=== PATIENT | female | born 2000 | race Caucasian/White ===

== ENCOUNTER 2022-05-19 05:16 | Inpatient (IN) ==
--- NOTE | 2022-05-18 19:45 | History & Physical Report ---
Date of Service May 18, 2022 Assessment & Plan (1) 40 weeks gestation of : (2) malpresentation: Plan Patient will be admitted for planned c/s due to malpresentation. Consent reviewed and signed. Patient to call and present to hospital immediately with labor or rom in meantime otherwise plan surgery for am. NPO after midnight. Risks, alternatives and complications reviewed. Labs in am. Patient and partner verbalize understanding of plan. History of Present Illness Chief Complaint: planned c/s Primary Care Provider: NO PCP 21yo at 40+wks ega presents to LD for planned c/s due to malpresentation. Came for her routine appt and noted to be breech and given ega planned for c/s on day of admission. No ctx, rom or vb. +FM. PNC c/b 1. hypothyroid, on meds 2. Chiari malformation, ok for vag delivery per neuro PNL rh pos, ri, gbs neg OBH: sab x 1 GYNH: no stds Allergies Allergy/AdvReac Type Severity Reaction Status Date / Time No Known Allergies Allergy Verified 05/18/22 15:02 Home Medications Medication Instructions Recorded Confirmed Type levothyroxine 100 mcg tablet 100 mcg PO DAILY 07/07/21 05/18/22 History (Synthroid) prenat.vits,abner,gca-znxm-vcmly 1 tab PO DAILY 07/07/21 05/18/22 History Patient History Medical History Chiari malformation Arnold-Chiari Type 1 malformation, following with [facility] neuro Per [facility] note 04/21/22, "Spoke with Dr. Brown, was able to review images and patient is ok with vaginal delivery and anesthesia" H/O Ness thyroiditis History of COVID-19 02/25/22 (home test)- symptoms resolved but does get occasional headaches since (unsure if relation) Surgical History H/O wisdom tooth extraction No history of previous surgery Family History Grandmother (Maternal) Uterine cancer Thyroid disease Aunt Breast cancer Mother Lupus Ness's thyroiditis Denies family history of Ovarian cancer Colorectal cancer Social History (Updated 05/15/22 @ 14:12 by Horacio Montgomery RN) Smoking Status: Former smoker Tobacco Type: Cigarettes packs per day: 0.1; Cigarettes Per Day: 1-2; Hx Alcohol Use: No Hx Substance Use: No Preferred Language: Citizen Of [place] Communication Ability: Effective Water Server Required: No Beliefs That Will Affect Care: None marital status: Single marital status details: garry Carlton [phone] Current Living Situation: Significant Other Current Living Situation Comment: lives with garry, 4 dogs, garry's father. current occupational status: employed current occupation: [email or web address] Feels Safe at Home: Yes Review of Systems as per Subjective / HPI Physical Exam Constitutional: WD/WN, vitals as above Gastrointestinal (Abdomen): soft gravid nt bedside u/s breech Musculoskeletal: no edema nontender calves Neurologic: grossly normal Psychiatric: A+Ox3, euthymic affect Genitourinary: Manual OB Exam: + cervical dilation (1-2cm), + cervical effacement (75%) and + station (palpated feet) high NST reactive Coding Level of Care Code None Diagnoses 40 weeks gestation of Z3A.40 malpresentation O32.9XX0
[2022-05-19] MEDS ORDERED: LACTATED RINGER'S 1,000 ML IV SCH ×2 (05:30→06:30)
[2022-05-19] MEDS ORDERED: CITRIC ACID/SODIUM CITRATE 15 ML UDC PO SCH (06:00)
[2022-05-19] MEDS ORDERED: ceFAZolin 2000MG 2,000 MG/15 ML SYR IV SCH (06:00)
[2022-05-19 06:26] LABS: Basophils # (auto) 0.03 K/uL (0-0.2); Basophils % (auto) 0.3 %; Eosinophils # (auto) 0.12 K/uL (0-0.50); Eosinophils % (auto) 1.1 %; Hematocrit (blood only) 34.4 % (37.0-47.0); Hemoglobin 11.9 g/dl (12.0-16.0); Immature Granulocytes # (auto) 0.04 K/uL (0.01-0.20); Immature Granulocytes % (auto) 0.4 %; Lymphocytes # (auto) 2.76 K/uL (1.2-3.4); Lymphocytes % (auto) 25.3 %; Mean Corpuscular Hemoglobin 30.4 pg (25.0-34.0); Mean Corpuscular Hgb Conc 34.6 g/dL (32.0-36.0); Mean Corpuscular Volume 87.8 fL (80.0-100.0); Mean Platelet Volume 9.7 fL (9.4-12.4); Monocytes # (auto) 0.88 K/uL (0.11-0.59); Monocytes % (auto) 8.1 %; Neutrophils % (auto) 64.8 %; Platelet Count 281 K/uL (130-400); RDW Coefficient of Variation 12.4 % (11.5-14.5); RDW Standard Deviation 39.3 fL (36.4-46.3); Red Blood Count 3.92 M/uL (4.20-5.40); White Blood Count 10.93 K/ul (4.8-10.8)
[2022-05-19] MEDS ORDERED: fentaNYL citrate 100 MCG/2 ML VIAL ONE (07:06)
[2022-05-19] MEDS ORDERED: ONDANSETRON INJ 2 MG/ML 2 ML VIAL ONE (07:06)
[2022-05-19] MEDS ORDERED: MoRPHine SULFATE PF 1 MG/ML 10 ML AMP/VIAL ONE (07:06)
[2022-05-19] MEDS ORDERED: OXYTOCIN 10 UNITS/ML 10ML VIAL ONE (07:06)
[2022-05-19] MEDS ORDERED: PHENYLEPHRINE HCL 10 MG/ML VIAL ONE (07:06)
[2022-05-19] MEDS ORDERED: KETOROLAC 30 MG/ML VIAL ONE (07:06)
--- NOTE | 2022-05-19 07:19 | Anesthesiology Consultation ---
Date of Service May 19, 2022 Assessment & Plan (1) Encounter for pre-operative examination: Chart Review Chart Review: Acceptable Risk for Surgery and Patient NOT seen in Pre Admission Testing Consults Requested none History Surgery Operation Date: 05/19/22 07:30 Proposed Procedures p Section in LD (Delivery of Baby Through Abdominal Incision) - Genevieve Duarte MD, FACOG Height/Weight Height: 5 ft 2 in Weight: 80.286 kg Allergies Allergy/AdvReac Type Severity Reaction Status Date / Time No Known Allergies Allergy Verified 05/19/22 05:32 Medications Home Medications Medication Instructions Recorded Confirmed Last Taken levothyroxine 100 mcg tablet 100 mcg PO DAILY 07/07/21 05/19/22 05/19/22 (Synthroid) prenat.vits,abner,zaf-vqxk-styvo 1 tab PO DAILY 07/07/21 05/19/22 05/18/22 Active Medications Generic Name Dose Route Start Last Admin Trade Name Freq PRN Reason Stop Dose Admin Lactated Ringer's 1,000 mls @ 125 mls/hr 05/19/22 06:30 05/19/22 07:12 Lr IV 06/18/22 06:29 125 mls/hr .Q8H EFREN Administration NPO Date Last Intake of Fluids: 05/18/22 Time Last Intake of Fluids: 22:30 Date Last Intake of Solids: 05/18/22 Time Last Intake of Solids: 22:30 Past Medical History Medical History Chiari malformation Arnold-Chiari Type 1 malformation, following with [facility] neuro [facility] 04/21/22, "Spoke with Dr. Brown, was able to review images and patient is ok with vaginal delivery and anesthesia" H/O Ness thyroiditis History of COVID-19 02/25/22 (home test)- symptoms resolved but does get occasional headaches since (unsure if relation) Past Family History Family History Grandmother (Maternal) Uterine cancer Thyroid disease Aunt Breast cancer Mother Lupus Ness's thyroiditis Denies family history of Ovarian cancer Colorectal cancer Past Surgical History Surgical History H/O wisdom tooth extraction No history of previous surgery Social History Smoking Status: Former smoker Smoking cigarettes per day: 1-2 Smoking End Date: 01/2022 Hx Alcohol Use: No Hx Substance Use: No substance use type: does not use Physical Exam Vital Signs Last Vital Signs Temp 98.8 F 05/19/22 05:29 Pulse 89 05/19/22 05:29 Resp 18 05/19/22 05:34 BP 132/64 05/19/22 05:29 Testing Laboratory Results 05/19/22 05:52
--- NOTE | 2022-05-19 07:29 | History & Physical Bridge Note ---
Date of Service May 19, 2022 History & Physical Bridge Note I have examined the patient, reviewed the History & Physical and in the interval since the performance of the History & Physical I have noted the following changes of clinical significance: no changes noted
[2022-05-19] MEDS ORDERED: NALOXONE HCL 0.08 MG in SYRINGE 1.8 ML IV PRN (08:17)
[2022-05-19] MEDS ORDERED: ePHEDrine sulfate 50 MG/ML AMP IV PRN (08:17)
[2022-05-19] MEDS ORDERED: NALBUPHINE HCL INJ 10 MG/ML AMP IV PRN (08:17)
[2022-05-19] MEDS ORDERED: ACETAMINOPHEN 1,000 MG/100 ML VIAL IV PRN (08:17)
[2022-05-19] MEDS ORDERED: NALOXONE HCL 1 MG in SODIUM CHLORIDE 0.9% 1000ML 1,000 ML IV PRN (08:17)
[2022-05-19] MEDS ORDERED: NALOXONE HCL 0.4 MG/1 ML VIAL/CARP IV PRN (08:17)
[2022-05-19] MEDS ORDERED: ONDANSETRON INJ 2 MG/ML 2 ML VIAL IV PRN ×2 (08:17→09:27)
[2022-05-19] MEDS ORDERED: diphenhydrAMINE 50 MG/ML VIAL IV PRN (08:17)
[2022-05-19] MEDS ORDERED: MoRPHine SULFATE PF 1 MG/ML 10 ML AMP/VIAL INT SPINAL ONE (08:17)
[2022-05-19] MEDS ORDERED: PROMETHAZINE HCL 12.5 MG in SODIUM CHLORIDE 0.9% 50 ML IV PRN (08:17)
[2022-05-19] MEDS ORDERED: LACTATED RINGER'S 500 ML IV PRN (08:17)
[2022-05-19] MEDS ORDERED: NO NARCOTICS OR SEDATIVES SCH (08:30)
[2022-05-19] MEDS ORDERED: DC INTRASPINAL MORPHINE SCH (08:30)
[2022-05-19] MEDS ORDERED: SODIUM CHLORIDE 0.9% 1000ML 1,000 ML IV SCH (08:30)
--- NOTE | 2022-05-19 09:01 | Post Operative Brief Note ---
PG Immediate Post Op with CF Date of Surgery May 19, 2022 Pre & Post Diagnosis Operation Date: 05/19/22 07:30 Pre-Op Diagnosis: 40 weeks gestation of section for malpresentation Post-Op Diagnosis: Same as pre-op I identified the patient and participated in the time-out.: Yes Procedure Operation Date: 05/19/22 07:30 Actual Procedures p Primary Low Transverse Section in LD (Delivery of Baby Through Abdominal Incision), Live male child at 0825(Bilateral) - Genevieve Duarte MD, FACOG Surgeon Genevieve Duarte MD, FACOG Vice President Of Marketing RN Estimated Blood Loss 500 Findings Consistent with Post-Op Diagnosis (viable infant, apgars pending. normal uterus tubes and ovaries bilaterally. ) Fluids 1200 Specimens Specimen Description: A. Placenta-hold B. Cord Blood Drains Falcon Catheter (Inserted after spinal, patent and draining clear yellow urine during procedure.) Anesthesia Type Spinal Complications none Disposition Accompanied Patient To Recovery: No Disposition: L&D
--- NOTE | 2022-05-19 09:14 | Anesthesiology Progress Note ---
Date of Service May 19, 2022 Anesthesia Post Procedure Vital Signs Vital Signs: Temp Pulse Resp BP 05/19/22 05:34 18 05/19/22 05:29 98.8 F 89 18 132/64 Transfer of Care Handoff Completed per policy Notes Mental Status: alert / awake / arousable and participated in evaluation Patient Amnestic to Procedure: No Nausea / Vomiting: adequately controlled Pain: adequately controlled Airway Patency, RR, SpO2: stable & adequate BP & HR: stable & adequate Hydration State: stable & adequate Neuraxial Anesthesia: was administered and sensory block is resolving Anesthetic Complications: no major complications apparent and Pt Satisfied with anesthetic care
--- NOTE | 2022-05-19 09:19 | Operative Report ---
PG Post Operative Report Pre & Post Diagnosis Operation Date: 05/19/22 07:30 Pre-Op Diagnosis: 40+ weeks gestation of malpresentation Post-Op Diagnosis: Same as pre-op I identified the patient and participated in the time-out.: Yes Procedure Operation Date: 05/19/22 07:30 Actual Procedures p Primary Low Transverse Section - Genevieve Duarte MD, FACOG Surgeon Genevieve Duarte MD, FACOG Mandate Retail Service Merchandiser RN Estimated Blood Loss 500 Findings Consistent with Post-Op Diagnosis (viable , apgars pending. normal uterus tubes and ovaries bilaterally. ) Fluids 1200 Specimens cord blood Drains 1200 Anesthesia Type Spinal Complications none Disposition Accompanied Patient To Recovery: No Disposition: L&D Indications 21yo with cc of malpresentation for planned section at 40+wks. Description of Procedure The patient was taken to the operating room and identified. After adequate anesthesia was obtained, she was placed in the supine position with a leftward tilt on the operating table and prepped and draped in the usual sterile fashion. A chapman catheter had already been placed. The knife was used to create a Pfannensteil skin incision that was carried down to the underlying layer of fascia. The fascia was nicked in the midline and this opening was extended laterally using Ferris scissors. Prashant clamps were placed on the superior and inferior aspect of the fascial incision tenting it upward and the underlying rectus muscles were dissected off the overlying fascia both sharply and bluntly using Ferris scissors. The rectus muscles were bluntly in the midline. The peritoneal cavity was bluntly entered into. This opening was stretched. The bladder blade was placed. The vesicouterine peritoneum was elevated and opened up into and the bladder flap was created digitally and bladder blade was r eplaced. The knife was used to create a hysterotomy and this opening was stretched. The operators hand was placed through the hysterotomy and the bladder blade was removed. The buttocks was elevated and delivered with fundal pressure to the level of the shoulders, the arms were swept across the anterior midline and the head was flexed and delivered. The cord was clamped and cut and the infant's mouth and nares were bulb suction. The infant was handed off to the awaiting pediatricians. Cord blood was obtained. The placenta was manually expressed. The uterus was exteriorized and cleared of all clots and debris. Dilute IV Pitocin was begun. The uterine tone was improving. The hysterotomy was closed in a running interlocking fashion using 0 Vicryl followed by a second imbricating layer of 0 Vicryl. The hysterotomy was not hemostatic and additional figure of eight sutures of 2-0 and 0 vicryl were placed for excellent hemostasis. The pelvis was suctioned. The uterus was returned to the abdomen. The gutters were cleared of all clots and debris. The hysterotomy was reinspected and noted to be hemostatic. The fascia was then closed in running fashion using 0 Vicryl. The subcutaneous fat was copiously irrigated and reapproximated using 2-0 chromic. The skin was closed in a subcuticular fashion using 4-0 Vicryl. At this point the procedure was terminated. The patient was transferred to the recovery room in stable condition. All sponge, lap and needle counts are correct x2. I attest to the content of the Intraoperative Record and any orders documented therein. Any exceptions are noted below. OB Procedure Charges 41518
[2022-05-19] MEDS ORDERED: MAGNESIUM HYDROXIDE SUSP 30 ML UDC PO PRN (09:27)
[2022-05-19] MEDS ORDERED: SENNA 8.6 MG TAB PO PRN (09:27)
[2022-05-19] MEDS ORDERED: BENZOCAINE 20% AER SPR 82.5 GM CAN EXT PRN (09:27)
[2022-05-19] MEDS ORDERED: DIPHTHERIA/TETANUS/PERTUSSIS 0.5mL SYR/VIAL (Age 7+yrs) IM ONE (09:27)
[2022-05-19] MEDS ORDERED: HYDROCORTISONE ACETATE 25 MG SUPP PR PRN (09:27)
[2022-05-19] MEDS: OXYTOCIN 20 UNITS in LACTATED RINGER'S 1,000 ML IV SCH ×2 (10:52→20:10)
[2022-05-19] MEDS: HYDROmorphone INJ 0.5 MG/0.5 ML SYR IV PRN ×2 (11:05→17:50)
[2022-05-19] MEDS: KETOROLAC 30 MG/ML VIAL IV PRN ×2 (13:06→21:14)
[2022-05-19] MEDS: SIMETHICONE 80 MG CHEW PO SCH ×3 (13:07→21:14)
[2022-05-19] MEDS: DOCUSATE SODIUM 100 MG CAP PO SCH (21:14)
[2022-05-20] MEDS ORDERED: KETOROLAC 30 MG/ML VIAL IV PRN (02:18)
[2022-05-20] MEDS ORDERED: ZOLPIDEM TARTRATE 5 MG TAB PO PRN (02:18)
[2022-05-20] MEDS ORDERED: PROMETHAZINE HCL 25 MG in SODIUM CHLORIDE 0.9% 50 ML IV PRN (02:18)
[2022-05-20] MEDS ORDERED: diphenhydrAMINE 50 MG/ML VIAL IV PRN (02:18)
[2022-05-20] MEDS ORDERED: diphenhydrAMINE Capsule 25 MG CAP PO PRN (02:18)
[2022-05-20] MEDS: LACTATED RINGER'S 1,000 ML IV SCH ×3 (03:12→17:31)
[2022-05-20] MEDS: LEVOTHYROXINE SODIUM 100 MCG TABLET PO SCH (06:09)
--- NOTE | 2022-05-20 06:26 | Obstetrical Progress Note ---
Date of Service <Mary Guillermo MD - Last Filed: 05/20/22 06:27> May 20, 2022 Assessment & Plan <Mary Guillermo MD - Last Filed: 05/20/22 06:27> (1) care following delivery: 21 y/o female presented for primary c/s 2/2 footling breech presentation of fetus now POD1. GBS neg, Rh pos, RI. Tolerating clears, advancing diet today. Voiding trial. Encourage ambulation. Satisfactory post progress. c/b hypothyroidism c/b chiari malformation <Genevieve Duarte MD, FACOG - Last Filed: 05/20/22 07:00> (1) care following delivery: Subjective <Mary Guillermo MD - Last Filed: 05/20/22 06:27> Ambulation: limited ambulation Voiding: voiding difficulty (chapman removed last evening, has not yet passed urine) Diet Tolerance:: clear liquids (regular diet to try this AM) Lochia:: Small patient woken at bedside this AM, very sleepy - history limited. Physical Exam <Mary Guillermo MD - Last Filed: 05/20/22 06:27> Gen: well appearing sleepy female in NAD HEENT: AT NC Resp: No increased work of breathing CV: clinically well perfused, no calf tenderness : uterine fundus firm non-tender at the level of the umbilicus, wound - dressing c/d/i no strike through Results & Data ([facility]) <Mary Guillermo MD - Last Filed: 05/20/22 06:27> Vital Signs (Past 12 Hours) Vital Signs Temp Pulse Resp BP Pulse Ox O2 Del Method 05/20/22 02:35 36.8 C 86 18 110/68 Room Air 05/20/22 02:00 18 100 05/20/22 01:00 18 100 05/20/22 00:00 16 100 05/19/22 23:20 36.7 C 76 16 120/71 100 Room Air 05/19/22 23:00 16 100 05/19/22 22:00 18 100 05/19/22 21:00 18 100 05/19/22 20:00 18 99 05/19/22 19:59 36.4 C L 69 18 109/64 100 Room Air 05/19/22 19:00 18 98 05/19/22 18:45 16 100 Laboratory Results 05/19/22 05:52 <Genevieve Duarte MD, FACOG - Last Filed: 05/20/22 07:00> Co-Signing Physician Notes Resident Physician Supervision Note: I interviewed and examined the patient. Discussed with Dr. Guillermo and agree with findings and plan as documented in the note. Any exceptions or clarifications are listed here: stable, routine care. adv diet, po pain meds. await voiding. . cor rrr, lungs ctab, abd soft ff at u, mild appro tenderness, incision c/d/i. ext nt calves. pod#1, s/p LTCS, rec using scds, labs pending. routine care. Documented By: Genevieve Duarte MD, FACOG Resident Activity Tracking <Mary Guillermo MD - Last Filed: 05/20/22 06:27> Resident Involvement: Resident Care Provided Care Provided: OB Delivery
[2022-05-20 07:43] LABS: Basophils # (auto) 0.03 K/uL (0-0.2); Basophils % (auto) 0.3 %; Eosinophils % (auto) 0.9 %; Hematocrit (blood only) 25.2 % (37.0-47.0); Hemoglobin 8.5 g/dl (12.0-16.0); Immature Granulocytes # (auto) 0.03 K/uL (0.01-0.20); Immature Granulocytes % (auto) 0.3 %; Lymphocytes # (auto) 1.86 K/uL (1.2-3.4); Mean Corpuscular Hgb Conc 33.7 g/dL (32.0-36.0); Mean Platelet Volume 10.1 fL (9.4-12.4); Monocytes # (auto) 0.84 K/uL (0.11-0.59); Monocytes % (auto) 7.2 %; Neutrophils # (auto) 8.73 K/uL (1.40-6.50); Neutrophils % (auto) 75.3 %; Platelet Count 252 K/uL (130-400); RDW Coefficient of Variation 12.4 % (11.5-14.5); RDW Standard Deviation 40.4 fL (36.4-46.3); Red Blood Count 2.83 M/uL (4.20-5.40); White Blood Count 11.59 K/ul (4.8-10.8)
[2022-05-20] MEDS: FERROUS SULFATE 325 MG TAB PO SCH (08:23)
[2022-05-20] MEDS: DOCUSATE SODIUM 100 MG CAP PO SCH ×2 (08:23→21:12)
[2022-05-20] MEDS: PRENATAL VITAMIN 1 TAB PO SCH (08:23)
[2022-05-20] MEDS: oxyCODONE/ACETAMINOPHEN 5mg/325mg TAB PO PRN ×3 (08:23→20:31)
[2022-05-20] MEDS: SIMETHICONE 80 MG CHEW PO SCH ×4 (08:24→21:12)
[2022-05-20] MEDS: IBUPROFEN 600 MG TAB PO PRN ×2 (14:22→20:32)
[2022-05-21] MEDS: oxyCODONE/ACETAMINOPHEN 5mg/325mg TAB PO PRN ×3 (01:25→11:37)
[2022-05-21] MEDS: IBUPROFEN 600 MG TAB PO PRN ×3 (01:25→11:38)
[2022-05-21] MEDS: LEVOTHYROXINE SODIUM 100 MCG TABLET PO SCH (05:30)
[2022-05-21 06:40] LABS: Hematocrit (blood only) 24.7 % (37.0-47.0); Hemoglobin 8.3 g/dl (12.0-16.0)
[2022-05-21] MEDS ORDERED: Nursing to Pharmacy Communication SCH (07:45)
--- NOTE | 2022-05-21 07:48 | Obstetrical Progress Note ---
Date of Service May 21, 2022 Assessment & Plan (1) care following delivery: POD# 2 doing well. Reviewed PP DC instructions, followup in office in 6w. Rx Percocet #20 tabs sent to [facility] for postop pain control. Subjective Ambulation: ambulating normally Voiding: no voiding problems Diet Tolerance:: regular diet Lochia:: Moderate Review of Systems All systems reviewed & are unremarkable except as noted in HPI & below Physical Exam Constitutional WD/WN, vitals as above no acute distress Respiratory normal respiratory effort Cardiovascular Rate/Rhythm: regular rate and regular rhythm Gastrointestinal (Abdomen) Inspection/Auscultation: abdomen normal to inspection; abdomen not distended Percussion/Palpation: abdomen soft Genitourinary OB Exam Abdomen: + fundal height Fundus: + firm; not tender Results & Data ([facility]) Vital Signs (Past 12 Hours) Vital Signs Temp Pulse Resp BP Pulse Ox O2 Del Method 05/20/22 20:30 36.4 C L 101 H 18 122/70 98 Room Air 05/20/22 23:38 36.3 C L 100 H 18 133/75 100 Room Air
--- NOTE | 2022-05-21 07:53 | Communication Note ---
Date of Service: May 21, 2022 I tried twice to sent e-Rx for #20 tabs percocet to patient[facility] on file[facility]. I have gotten an error message each time, stating the p rescription is pending, but am unable to proceed further. Will try again in a few minutes on a different computer.
[2022-05-21] MEDS: PRENATAL VITAMIN 1 TAB PO SCH (08:26)
[2022-05-21] MEDS: SIMETHICONE 80 MG CHEW PO SCH (08:26)
[2022-05-21] MEDS: DOCUSATE SODIUM 100 MG CAP PO SCH (08:26)
[2022-05-21] MEDS: FERROUS SULFATE 325 MG TAB PO SCH (08:26)
[2022-05-21] MEDS ORDERED: bisacodyL 10 MG SUPP PR PRN (09:02)
--- NOTE | 2022-05-24 00:43 | Discharge Summary ---
Date of Service Day of admission: May 19 2022 Day of discharge: May Admission HPI Per Admitting Provider 21yo at 40+wks egadilson presents to LD for planned c/s due to malpresentation. Came for her routine appt and noted to be breech and given ega planned for c/s on day of admission. No ctx, rom or vb. +FM. PNC c/b 1. hypothyroid, on meds 2. Chiari malformation, ok for vag delivery per neuro PNL rh pos, ri, gbs neg OBH: sab x 1 GYNH: no stds Discharge Data Consultations 05/19/22 05:21 Consult Anesthesiology Stat Procedures Performed Operation Date: 05/19/22 07:30 Actual Procedures p Primary Low Transverse Section Hospital Course (1) care following delivery: (2) malpresentation: Plan The patient underwent the above stated procedure without incident and her p ostoperative course and recovery was uncomplicated. On her postoperative day #2 she was tolerating a regular diet, voiding spontaneously, ambulating without problem and was using oral meds for adequate pain control. Her postoperative hemoglobin was 8.3. She was given written and verbal discharge instructions and told to followup in office at 6wks. She was given appropriate pain medicine prescriptions. Coding Level of Care Code None Diagnoses care following delivery Z39.2 malpresentation O32.9XX0
[2022-05-25] MEDS ORDERED: IBUPROFEN 600 MG TAB PO PRN (06:00)
== END 2022-05-21 14:00 | disposition home or self-care (01) | DRG 788 ==
LOC: 4S1 05:16 → 4E1 06:07 → EDSTATUS 07:30 → 4E2 11:34